=== PATIENT | male | born 1995 | race Caucasian/White ===

== ENCOUNTER 2016-09-15 06:15 | Emergency (ER) | payer SELFPAY ==
[2016-09-15] MEDS ORDERED: CLINDAMYCIN HCL 150 MG CAPSULE ONE (06:56)
== END 2016-09-15 07:10 | disposition home or self-care (01) ==
LOC: ED 06:15
DX: L03.211 Cellulitis of face (principal)
CPT/HCPCS: 99283 ×2; A9270